=== PATIENT | female | born 1960 | race Caucasian/White ===

== ENCOUNTER → 2017-02-18 | Outpatient (CLI) | payer OTHER | LOC: FIMAGING 08:43 | PROVIDERS: ATTEND Physician Assistant | DX: Z12.31 Encounter for screening mammogram for malignant neoplasm of breast (principal); Z13.820 Encounter for screening for osteoporosis; M85.80 Other specified disorders of bone density and structure, unspecified site; Z78.0 Asymptomatic menopausal state | CPT/HCPCS: G0202 ==

== ENCOUNTER → 2017-05-25 | Outpatient (CLI) | payer OTHER | LOC: FIMAGING 08:54 | PROVIDERS: ATTEND Orthopaedic Surgery | DX: M17.12 Unilateral primary osteoarthritis, left knee (principal) ==

== ENCOUNTER 2017-06-02 09:09 | Inpatient (IN) | payer OTHER ==
[~2017-06-02 09:09] MED LIST: ROPIVACAINE 0.2% 80 MG, EPINEPHrine 0.2 MG, KETOROLAC TROMETHAMINE 30 MG in BAG 0 ML IU ONE; TRANEXAMIC ACID 3,000 MG in NS 50 ML IRR ONE; TRANEXAMIC ACID 3,000 MG/50 ML BAG IRR ONE; VANCOMYCIN 1 GM VIAL ONE
[2017-06-02] MEDS ORDERED: ACETAMINOPHEN 325 MG TAB PO ONE (09:24)
[2017-06-02] MEDS ORDERED: ceFAZolin 2 GM/DEXTROSE 100 ML IV ONE (09:24)
[2017-06-02] MEDS ORDERED: DEXAMETHASONE 4 MG/ML VIAL IVP ONE (09:24)
[2017-06-02] MEDS ORDERED: FAMOTIDINE 20 MG TAB PO ONE (09:24)
[2017-06-02] MEDS ORDERED: LIDOCAINE 1% 2 ML INJ ID PRN (09:35)
[2017-06-02] MEDS ORDERED: LR 1,000 ML IV ONE (09:35)
--- NOTE | 2017-06-02 09:38 | PDHPUP ---
History & Physical Update H&P update statement: This history and physical update is based on an assessment of the patient which was completed after admission or registration (within 24 hours), but prior to the surgery/procedure. H&P update: H&P reviewed & patient examined, no change in patient's condition since H&P completed
[2017-06-02] MEDS ORDERED: MIDAZOLAM 2 MG/2 ML VIAL ONE (11:33)
[2017-06-02] MEDS ORDERED: MIDAZOLAM 2 MG/2 ML VIAL IVP ONE (11:34)
--- NOTE | 2017-06-02 11:35 | PDANEPAE ---
ANE History of Present Illness tka ANE Past Medical History - Cardiovascular History Hx Hypertension: No Hx Arrhythmias: No Hx Chest Pain: No Hx Coronary Artery / Peripheral Vascular Disease: No Hx CHF / Valvular Disease: No Hx Palpitations: No - Pulmonary History Hx COPD: No Hx Asthma/Reactive Airway Disease: No Hx Recent Upper Respiratory Infection: No Hx Oxygen in Use at Home: No Hx Sleep Apnea: No Sleep Apnea Screening Result - Last Documented: Negative - Neurologic History Hx Cerebrovascular Accident: No Hx Seizures: No Hx Dementia: No - Endocrine History Hx Diabetes: No - Renal History Hx Renal Disorders: Yes Renal History Comment: stress incontinence - Liver History Hx Hepatic Disorders: No - Neurological & Psychiatric Hx Hx Neurological and Psychiatric Disorders: Yes Neurological / Psychiatric History Comment: mild spinal stenosis L5/S1 - Cancer History Hx Cancer: Yes 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 L ft swelling s/p surgery . - Chronic Pain History Chronic Pain: Yes (knees) - Surgical History Prior Surgeries: bunionectomy,spur excision -2016. C sections x2- 1988,1990. open knee sx-teenager. knee scopes x3 ANE Review of Systems - Exercise capacity METS (RN): 4 METS ANE Patient History - Allergies Allergies/Adverse Reactions: erythromycin base Allergy (Verified 05/03/17 10:04) Hives - Home Medications Home Medications: Herbals/Supplements -Info Only 1 ea PO DAILY 04/27/17 [Last Taken 05/19/17] Multivitamins [Multivitamin (*)] 1 each PO DAILY 04/27/17 [Last Taken 05/19/17] [place]-3 Fatty Acids [Fish Oil 1000 mg (*)] 1,000 mg PO DAILY 04/27/17 [Last Taken 05/19/17] - NPO status NPO Status: no food or drink >8 hours NPO Since - Liquids (Date): 06/01/17 NPO Since - Liquids (Time): 20:00 NPO Since - Solids (Date): 06/01/17 NPO Since - Solids (Time): 20:00 - Anes Hx Anes Hx: post operative nausea - Smoking Hx Smoking Status: Never smoked ANE Labs/Vital Signs - Vital Signs Blood Pressure: 124/66 Heart Rate: 63 Respiratory Rate: 16 O2 Sat (%): 98 Height: 175.26 cm Weight: 65.771 kg ANE Physical Exam - Airway Mallampati Score: Class 2 Mouth exam: normal dental/mouth exam - Pulmonary Pulmonary: no respiratory distress - Cardiovascular Cardiovascular: regular rate and rhythym - ASA Status ASA Status: I ANE Anesthesia Plan Anesthesia Plan: spinal Regional Anesthesia: adductor canal FNB
[2017-06-02] MEDS ORDERED: PROPOFOL/EMULSION 500 MG/50 ML BOTTLE IV ONE (11:38)
[2017-06-02] MEDS ORDERED: LIDOCAINE 2% 5 ML SDV ONE (11:46)
[2017-06-02] MEDS ORDERED: HYDROmorphONE/DILAUDID 2 MG/ML INJ ONE (12:05)
[2017-06-02] MEDS ORDERED: ROPIVACAINE HCL 150 MG/30 ML INJ ONE (12:07)
[2017-06-02] MEDS ORDERED: LR 500 ML IV PRN (12:09)
[2017-06-02] MEDS ORDERED: MEPERIDINE 25 MG/ML SYR IVP PRN (12:09)
[2017-06-02] MEDS ORDERED: fentaNYL 100 MCG/2 ML INJ IVP PRN (12:09)
[2017-06-02] MEDS ORDERED: ONDANSETRON 4 MG/2 ML VIAL IVP PRN ×2 (12:09→13:06)
[2017-06-02] MEDS ORDERED: NALOXONE HCL 0.4 MG/ML INJ IVP PRN (12:09)
[2017-06-02] MEDS ORDERED: ONDANSETRON 4 MG/2 ML VIAL ONE (12:11)
[2017-06-02] MEDS ORDERED: MAGNESIUM HYDROXIDE 30 ML UDCUP PO PRN (13:06)
[2017-06-02] MEDS ORDERED: PROMETHAZINE HCL 25 MG SUPPR PR PRN (13:06)
[2017-06-02] MEDS ORDERED: CYCLOBENZAPRINE 10 MG TAB PO PRN (13:06)
[2017-06-02] MEDS ORDERED: diphenhydrAMINE 25 MG CAP PO PRN (13:06)
[2017-06-02] MEDS ORDERED: LACTULOSE 20 GM/30 ML UDCUP PO PRN (13:06)
[2017-06-02] MEDS ORDERED: DIPHENOXYLATE/ATROPINE LOMOTIL 1 TAB PO PRN (13:06)
[2017-06-02] MEDS ORDERED: METOCLOPRAMIDE 10 MG/2 ML VIAL IVP PRN (13:06)
[2017-06-02] MEDS ORDERED: POLYETHYLENE GLYCOL 3350 17 GM PKT PO PRN (13:06)
[2017-06-02] MEDS ORDERED: BISACODYL 10 MG SUPP PR PRN (13:06)
[2017-06-02] MEDS ORDERED: TEMAZEPAM 15 MG CAP PO PRN (13:06)
[2017-06-02] MEDS ORDERED: PROMETHAZINE HCL 25 MG/ML INJ IVP PRN (13:06)
[2017-06-02] MEDS ORDERED: ONDANSETRON DISINTEGRATING 4 MG TAB PO PRN (13:06)
--- NOTE | 2017-06-02 13:06 | POSTOPPROG ---
Post Op Note Date of Operation: 06/02/17 Surgeon: Jesus Manuel Lagos General Labor: beth merida Anesthesiologist: jana Anesthesia: IV Sedation, Spinal Pre-op Diagnosis: L knee OA Post-op Diagnosis: L knee OA Indication: failed conservative therapies Procedure: L TKA, robot assisted Inf/Abcess present in the surg proc area at time of surgery?: No EBL: 50-100
[2017-06-02] MEDS: HYDROmorphONE/DILAUDID 1 MG/ML SYR IVP PRN ×3 (13:19→13:58)
[2017-06-02] MEDS ORDERED: HYDROmorphONE/DILAUDID 1 MG/ML SYR ONE (13:19)
--- NOTE | 2017-06-02 13:20 | POSTANESTH ---
Post Anesthetic Evaluation Cardiovascular Status: Normal, Stable Respiratory Status: Normal, Stable Level of Consciousness/Mental Status: Can Participate in Eval Pain Control: Adequate, Prn Tx Ordered Nausea/Vomiting Control: Adequate, Prn Tx Ordered Complications Possibly Related to Anesthesia: None Noted
[2017-06-02] MEDS ORDERED: LR 1,000 ML IV SCH (13:30)
[2017-06-02] MEDS: oxyCODONE IR 5 MG TAB PO PRN ×2 (14:32→17:37)
[2017-06-02] MEDS: ACETAMINOPHEN 325 MG TAB PO SCH ×2 (17:37→23:30)
[2017-06-02] MEDS: ASPIRIN 325 MG TAB PO SCH (19:44)
[2017-06-02] MEDS: SENNOSIDES/DOCUSATE SODIUM TAB PO SCH (19:44)
[2017-06-02] MEDS: ceFAZolin 2 GM/DEXTROSE 100 ML IV SCH (19:44)
[2017-06-02] MEDS: FAMOTIDINE 20 MG TAB PO SCH (19:45)
[2017-06-03] MEDS: oxyCODONE IR 5 MG TAB PO PRN ×3 (01:07→11:02)
[2017-06-03] MEDS: ACETAMINOPHEN 325 MG TAB PO SCH ×2 (04:56→14:32)
[2017-06-03] MEDS: ceFAZolin 2 GM/DEXTROSE 100 ML IV SCH (04:57)
[2017-06-03 05:03] VITALS: TEMP 97.7
[2017-06-03 05:19] LABS: HEMATOCRIT 37.5 % (38.0-47.0); HEMOGLOBIN 12.3 g/dL (12.6-16.3)
[2017-06-03 08:07] VITALS: BP 109/56; RESP 18
--- NOTE | 2017-06-03 08:23 | SOAPPROG ---
SOAP Progress Note Assessment/Plan: Assessment: Patient is doing well POD 1 s/p L TKA, robot assisted Pain management: pain is well controlled on oral pain meds. VTE ppx: recommend aspirin daily for 3 weeks, cont DARWIN and SCDs Anemia: level is expected initially postop. Asymptomatic. Continue to monitor D/c planning: d/c to home today pending release from PT Plan: 06/03/17 08:22 Objective: Vital Signs Temp Pulse Resp BP Pulse Ox 36.5 C 60 18 109/56 L 97 06/03/17 05:02 06/03/17 08:06 06/03/17 08:06 06/03/17 08:06 06/03/17 08:06 Laboratory Results 06/03/17 04:47 06/02/17 06/03/17 06/04/17 05:59 05:59 05:59 Intake Total 2427 Output Total 600 200 Balance 1827 -200 ICD10 Worksheet Patient Problems: Problems Problem Status Onset Osteoarthritis of knee, unilateral Acute - ICD10 Problem Qualifiers (1) Osteoarthritis of knee, unilateral
[2017-06-03] MEDS: SENNOSIDES/DOCUSATE SODIUM TAB PO SCH (08:38)
[2017-06-03] MEDS: FAMOTIDINE 20 MG TAB PO SCH (08:38)
[2017-06-03] MEDS: ASPIRIN 325 MG TAB PO SCH (08:38)
[2017-06-03 10:44] VITALS: PULSE 68; O2SAT 95
--- NOTE | 2017-06-03 13:34 | GOP ---
[f rep st] OPERATIVE REPORT DATE OF OPERATION: 06/02/2017 SURGEON: Jessica Lagos MD CAR BODY MECHANIC: Olman Cuba, TAMMY. ANESTHESIA: Spinal. PREOPERATIVE DIAGNOSIS: Left knee osteoarthritis. POSTOPERATIVE DIAGNOSIS: Left knee osteoarthritis. PROCEDURE PERFORMED: Left total knee arthroplasty with computer navigation. FINDINGS/PATHOLOGY: Severe patellofemoral osteoarthritis. ESTIMATED BLOOD LOSS: 30 cc. INDICATIONS: This is a 56-year-old female with severe and progressive pain and deformity of the left knee unresponsive to conservative care. The risks and benefits of surgical intervention were explained in detail. DESCRIPTION OF PROCEDURE: The patient was brought to the operative room and placed on the table in the supine position. Spinal anesthesia was induced without difficulty. A pneumatic tourniquet was applied about the left proximal thigh, and the leg was prepped and draped in a sterile fashion. The leg alegre was applied. After exsanguination by elevation the tourniquet was inflated to 275 mm of mercury. Incision was made anterior medial from the tibial tuberosity to a point 2 cm proximal to the superior pole of the patella. Medial parapatellar arthrotomy was carried out from the superior pole of the patella and posteriorly in line with the fibers of the Type II VMO. The medial collateral ligament was elevated and the infrapatellar fat pad was resected. The patella was everted and the articular surface was excised. A 35 mm patellar button was placed. Attention was turned first to the distal aspect of the left femur. At 3 cm proximal to the medial rise of the femur, 2 percutaneous half pins were placed for fixation of the femoral array. In a similar fashion, 2 pins were placed anteromedial on the tibia for fixation of the tibial array. External land marking and registration of the hip center was performed without difficulty. Internal femoral and tibial registration was carried out without difficulty and the femoral and tibial checkpoints were placed and verified for accuracy. Attention was turned to the femur. The foot print for the size 4 femoral component was cut with the saw using the [employer] robotic system and verified for accuracy against the CT based plan. In a similar fashion, saw was used to cut the footprint for the size 4 tibial component using the [employer] system and verified for accuracy against the CT based plan. The tibial articular surface was excised without difficulty, followed by the intercondylar box cut. The knee was extended and the remnants of the medial and lateral meniscus were excised. The posterior capsule was injected with ropivacaine, epinephrine and Toradol. A size 4 MIS mini-keel tibial tray was positioned. Trial reduction was then carried out. There was excellent range of motion, alignment, and stability using the 9 mm polyethylene. All trials were then removed. The joint was thoroughly irrigated and carefully dried. Two packages of cement and 2 grams of vancomycin were mixed in the vacuum mixer and placed on the fixation surfaces of all surfaces of the components. The components were implanted and all excess cement was thoroughly removed. The permanent 9 mm polyethylene was placed without difficulty. The tourniquet was deflated and all bleeders were coagulated. The wound was thoroughly irrigated and closed using interrupted sutures of 2-0 Vicryl for the joint capsule. The subcu was closed with 3-0 Vicryl and the skin with 4-0 Monocryl. Dermabond and Steri-Strips were applied followed by a compressive dressing. The patient was then moved from the operating room to the recovery room in good condition, having tolerated the procedure well. /[id number]/MODL MTDD
--- NOTE | 2017-06-07 03:42 | GDS ---
[f rep st] DISCHARGE SUMMARY ADMISSION DIAGNOSIS: Left knee osteoarthritis. DISCHARGE DIAGNOSIS: Left knee osteoarthritis. PROCEDURE: Left total knee arthroplasty, robot-assisted. VTE PROPHYLAXIS: Full-strength aspirin x21 days. BRIEF DESCRIPTION OF HOSPITAL STAY: Patient was admitted for an elective joint arthroplasty. The p atient tolerated the procedure well and has passed physical therapy. The patient was given appropri ate antibiotic prophylaxis and venous thromboembolism prophylaxis. The patient's pain was well cont rolled on oral pain medication, patient was holding down food, and had urinated. Decision was made to discharge the patient. The patient was given post-operative prescriptions pre-operatively. PLAN: Please follow up with Dr. Lagos as scheduled on June 21, 2017. /[id number]/MODL
== END 2017-06-03 12:54 | disposition home or self-care (01) | DRG 470 ==
LOC: F3E 09:09 → F3N 14:10
PROVIDERS: ADMIT Orthopaedic Surgery; ATTEND Orthopaedic Surgery
DX: M17.12 Unilateral primary osteoarthritis, left knee (principal); N39.3 Stress incontinence (female) (male); Z85.820 Personal history of malignant melanoma of skin
CPT/HCPCS: 97116-GP; 97161-GP; 97165-GO; 97530-GP; C1713; J0171; J0690; J1100; J1170; J1885; J2250; J2405; J2550; J2704; J2795; J3370

== ENCOUNTER → 2017-06-30 | Outpatient (CLI) | payer OTHER | LOC: FIMAGING 08:41 | PROVIDERS: ATTEND Orthopaedic Surgery | DX: Z01.818 Encounter for other preprocedural examination (principal); M17.11 Unilateral primary osteoarthritis, right knee ==

== ENCOUNTER 2017-07-14 07:14 | Inpatient (IN) | payer OTHER ==
[2017-06-30 09:17] LABS: ADD DIFF? NO; ADD MORPH? NO; ADD SCAN? NO; ATYPICAL LYMPHOCYTE FLAG 0 (0-99); FRAGMENT RBC FLAG 0 (0-99); HEMATOCRIT 41.2 % (38.0-47.0); HEMOGLOBIN 13.6 g/dL (12.6-16.3); LEFT SHIFT FLG 0 (0-99); LIPEMIA HEMOLYSIS FLAG 80 (0-99); MEAN CELL VOLUME 93.8 fL (81.5-99.8); MEAN PLATELET VOLUME 9.7 fL (8.7-11.7); PLATELET CLUMPS FLAG 0 (0-99); PLATELET COUNT 284 10^3/uL (150-400); RED BLOOD CELL COUNT 4.39 10^6/uL (4.18-5.33); RED CELL DISTRIBUTION WIDTH 12.9 % (11.5-15.2)
[2017-07-14] MEDS ORDERED: DEXAMETHASONE 4 MG/ML VIAL IVP ONE (07:27)
[2017-07-14] MEDS ORDERED: FAMOTIDINE 20 MG TAB PO ONE (07:27)
[2017-07-14] MEDS ORDERED: ceFAZolin 2 GM/DEXTROSE 100 ML IV ONE (07:27)
[2017-07-14] MEDS ORDERED: ACETAMINOPHEN 325 MG TAB PO ONE (07:27)
[2017-07-14] MEDS ORDERED: LIDOCAINE 1% 2 ML INJ ID PRN (07:29)
[2017-07-14] MEDS ORDERED: LR 1,000 ML IV ONE (07:29)
--- NOTE | 2017-07-14 07:40 | PDANEPAE ---
ANE History of Present Illness 56 year old female presents for right total knee replacement. Patient with recent orthopaedic surgery with spinal, but had to transition to general anesthesia due to patient movement. On emergence, spinal had set up completely , reporting still unable to move legs. Patient did request that we attempt spinal with sedation again today. Consented for general anesthesia as back-up plan only. Will perform right AC block for POPC PSR in PACU. ANE Past Medical History - Cardiovascular History Hx Hypertension: No Hx Arrhythmias: No Hx Chest Pain: No Hx Coronary Artery / Peripheral Vascular Disease: No Hx CHF / Valvular Disease: No Hx Palpitations: No - Pulmonary History Hx COPD: No Hx Asthma/Reactive Airway Disease: No Hx Recent Upper Respiratory Infection: No Hx Oxygen in Use at Home: No Hx Sleep Apnea: No Sleep Apnea Screening Result - Last Documented: Negative - Neurologic History Hx Cerebrovascular Accident: No Hx Seizures: No Hx Dementia: No - Endocrine History Hx Diabetes: No Hypothyroid: No Hyperthyroid: No Obesity: no - Renal History Hx Renal Disorders: Yes Renal History Comment: stress incontinence - Liver History Hx Hepatic Disorders: No - Neurological & Psychiatric Hx Hx Neurological and Psychiatric Disorders: Yes Neurological / Psychiatric History Comment: mild spinal stenosis L5/S1 - Cancer History Hx Cancer: Yes 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 L ft swelling s/p surgery . - Chronic Pain History Chronic Pain: Yes (knees) - Surgical History Prior Surgeries: bunionectomy,spur excision -2016. C sections x2- 1987,1990. open knee sx-teenager. knee scopes x3 ANE Review of Systems Review of systems is: negative Review of Systems: - Exercise capacity Exercise capacity: >=4 METS METS (RN): 4 METS ANE Patient History - Allergies Allergies/Adverse Reactions: erythromycin base Allergy (Verified 06/15/17 12:09) Hives - Home Medications Home medications: home medication list seen and reviewed Home Medications: RX: Herbals/Supplements -Info Only 1 ea PO DAILY 04/27/17 [Last Taken 6 Weeks Ago ~06/02/17] RX: Multivitamins [Multivitamin (*)] 1 each PO DAILY 04/27/17 [Last Taken 6 Weeks Ago ~06/02/17] RX: [place]-3 Fatty Acids [Fish Oil 1000 mg (*)] 1,000 mg PO DAILY 04/27/17 [Last Taken 05/19/17] RX: oxyCODONE IR [Oxycodone Ir (*)] 5 - 10 mg PO PRN PRN 06/08/17 [Last Taken 5 Weeks Ago ~06/09/17] - NPO status NPO Status: no food or drink >8 hours - Anes Hx Anes Hx: slow to awaken from anesthesia - Smoking Hx Smoking Status: Never smoked Marijuana use: No - Alcohol Use Alcohol Use: Occasionally - Family Anes Hx Family Anes Hx: neg - N/A Family Hx Anesthesia Complications: NONE ANE Labs/Vital Signs - Labs Result Diagrams: 06/30/17 08:50 - Vital Signs Vital Signs: reviewed preoperatively; see RN documention for details Height: 175.26 cm Weight: 65.771 kg ANE Physical Exam - Airway Neck exam: FROM Mallampati Score: Class 2 Mouth exam: normal dental/mouth exam - Pulmonary Pulmonary: no respiratory distress - Cardiovascular Cardiovascular: regular rate and rhythym - ASA Status ASA Status: II ANE Anesthesia Plan Anesthesia Plan: GA w LMA, MAC, spinal (Had previous difficult with spinal placement requiring general anesthesia.) Regional Anesthesia: single shot NB Total IV Anesthesia: No
[2017-07-14] MEDS ORDERED: MIDAZOLAM 2 MG/2 ML VIAL IVP ONE (07:58)
[2017-07-14] MEDS ORDERED: BUPIVACAINE/DEXTROSE 7.5MG/ML 2 ML SPINAL AMP SP ONE (08:27)
[2017-07-14] MEDS ORDERED: PROPOFOL/EMULSION 500 MG/50 ML BOTTLE IV ONE (08:27)
[2017-07-14] MEDS ORDERED: ONDANSETRON 4 MG/2 ML VIAL IVP PRN ×2 (08:49→09:36)
[2017-07-14] MEDS ORDERED: PROMETHAZINE HCL 25 MG SUPPR PR PRN (08:49)
[2017-07-14] MEDS ORDERED: METOCLOPRAMIDE 10 MG/2 ML VIAL IVP PRN (08:49)
[2017-07-14] MEDS ORDERED: DIPHENOXYLATE/ATROPINE LOMOTIL 1 TAB PO PRN (08:49)
[2017-07-14] MEDS ORDERED: MAGNESIUM HYDROXIDE 30 ML UDCUP PO PRN (08:49)
[2017-07-14] MEDS ORDERED: ONDANSETRON DISINTEGRATING 4 MG TAB PO PRN (08:49)
[2017-07-14] MEDS ORDERED: CYCLOBENZAPRINE 10 MG TAB PO PRN (08:49)
[2017-07-14] MEDS ORDERED: POLYETHYLENE GLYCOL 3350 17 GM PKT PO PRN (08:49)
[2017-07-14] MEDS ORDERED: TEMAZEPAM 15 MG CAP PO PRN (08:49)
[2017-07-14] MEDS ORDERED: LACTULOSE 20 GM/30 ML UDCUP PO PRN (08:49)
[2017-07-14] MEDS ORDERED: PROMETHAZINE HCL 25 MG/ML INJ IVP PRN (08:49)
[2017-07-14] MEDS ORDERED: diphenhydrAMINE 25 MG CAP PO PRN (08:49)
[2017-07-14] MEDS ORDERED: BISACODYL 10 MG SUPP PR PRN (08:49)
[2017-07-14] MEDS ORDERED: LR 1,000 ML IV SCH (09:00)
[2017-07-14] MEDS ORDERED: ONDANSETRON 4 MG/2 ML VIAL ONE (09:33)
[2017-07-14] MEDS ORDERED: ROPIVACAINE HCL 150 MG/30 ML INJ ONE (09:33)
[2017-07-14] MEDS ORDERED: DEXAMETHASONE 4 MG/ML VIAL ONE (09:33)
[2017-07-14] MEDS ORDERED: LR 500 ML IV PRN (09:36)
[2017-07-14] MEDS ORDERED: HYDROmorphONE/DILAUDID 1 MG/ML INJ IVP PRN (09:36)
[2017-07-14] MEDS ORDERED: HYDROCODONE/APAP 5/325 TAB PO PRN (09:36)
[2017-07-14] MEDS ORDERED: fentaNYL 100 MCG/2 ML INJ IVP PRN (09:36)
[2017-07-14] MEDS ORDERED: NALOXONE HCL 0.4 MG/ML INJ IVP PRN (09:36)
--- NOTE | 2017-07-14 10:02 | POSTOPPROG ---
Post Op Note Date of Operation: 07/14/17 Surgeon: Jesus Manuel Rincon Clinical Quality Assurance Associate: francesca rincon Anesthesiologist: dr. Bernal Anesthesia: Spinal, Other (Specify) (adductor canal block) Pre-op Diagnosis: right knee OA Post-op Diagnosis: same Indication: right knee pain due to OA that failed conservative measures Procedure: R TKA robot assisted Findings: severe knee OA Inf/Abcess present in the surg proc area at time of surgery?: No EBL: 50-100
[2017-07-14] MEDS: ACETAMINOPHEN 325 MG TAB PO SCH ×3 (13:56→22:50)
[2017-07-14] MEDS: ceFAZolin 2 GM/DEXTROSE 100 ML IV SCH ×2 (13:56→22:50)
[2017-07-14] MEDS: SENNOSIDES/DOCUSATE SODIUM TAB PO SCH ×2 (14:14→19:58)
--- NOTE | 2017-07-14 15:28 | POSTANESTH ---
Post Anesthetic Evaluation Cardiovascular Status: Normal, Stable, Similar to Pre-Op Cond Respiratory Status: Normal, Stable, Similar to Pre-op Cond. Level of Consciousness/Mental Status: Can Participate in Eval, Alert and Oriented Pain Control: Adequate, Prn Tx Ordered Nausea/Vomiting Control: Adequate, Prn Tx Ordered Complications Possibly Related to Anesthesia: None Noted
[2017-07-14] MEDS: FAMOTIDINE 20 MG TAB PO SCH (19:59)
[2017-07-14] MEDS: ASPIRIN 325 MG TAB PO SCH (19:59)
[2017-07-14] MEDS: oxyCODONE IR 5 MG TAB PO PRN (22:50)
[2017-07-15] MEDS: ACETAMINOPHEN 325 MG TAB PO SCH (05:00)
[2017-07-15 05:15] LABS: HEMATOCRIT 34.5 % (38.0-47.0); HEMOGLOBIN 11.5 g/dL (12.6-16.3)
[2017-07-15] MEDS: oxyCODONE IR 5 MG TAB PO PRN ×2 (06:22→10:15)
[2017-07-15 08:17] VITALS: BP 94/62; PULSE 61; RESP 14; TEMP 97.6; O2SAT 94
[2017-07-15] MEDS: ASPIRIN 325 MG TAB PO SCH (08:49)
[2017-07-15] MEDS: SENNOSIDES/DOCUSATE SODIUM TAB PO SCH (08:49)
[2017-07-15] MEDS: FAMOTIDINE 20 MG TAB PO SCH (08:49)
--- NOTE | 2017-07-15 08:49 | GOP ---
[f rep st] OPERATIVE REPORT DATE OF OPERATION: 07/14/2017 SURGEON: Jessica Lagos MD SUPERVISOR PREPRESS: TAMMY Johnson. PREOPERATIVE DIAGNOSIS: Right knee osteoarthritis. POSTOPERATIVE DIAGNOSIS: Right knee osteoarthritis. PROCEDURE PERFORMED: Right total knee arthroplasty with computer navigation and robotic assist. FINDINGS: ESTIMATED BLOOD LOSS: 30 cc. INDICATIONS: This is a 56-year-old female with severe and progressive pain and deformity of the right knee unresponsive to conservative care. The risks and benefits of surgical intervention were explained in detail. DESCRIPTION OF PROCEDURE: The patient was brought to the operative room and placed on the table in the supine position. Spinal anesthesia was induced without difficulty. A pneumatic tourniquet was applied about the right proximal thigh, and the leg was prepped and draped in a sterile fashion. The leg alegre was applied. After exsanguination by elevation the tourniquet was inflated to 275 mm of mercury. Incision was made anterior medial from the tibial tuberosity to a point 2 cm proximal to the superior pole of the patella. Medial parapatellar arthrotomy was carried out from the superior pole of the patella and posteriorly in line with the fibers of the Type II VMO. The medial collateral ligament was elevated and the infrapatellar fat pad was resected. The patella was everted and the articular surface was excised. A 3 mm patellar button was placed. Attention was turned first to the distal aspect of the right femur. At 3 cm proximal to the medial rise of the femur, 2 percutaneous half pins were placed for fixation of the femoral array. In a similar fashion, 2 pins were placed anteromedial on the tibia for fixation of the tibial array. External land marking and registration of the hip center was performed without difficulty. Internal femoral and tibial registration was carried out without difficulty and the femoral and tibial checkpoints were placed and verified for accuracy. Attention was turned to the femur. The foot print for the size 4 femoral component was cut with the saw using the [employer] robotic system and verified for accuracy against the CT based plan. In a similar fashion, saw was used to cut the footprint for the size 4 tibial component using the [employer]ANNON system and verified for accuracy against the CT based plan. The tibial articular surface was excised without difficulty, followed by the intercondylar box cut. The knee was extended and the remnants of the medial and lateral meniscus were excised. The posterior capsule was injected with ropivacaine, epinephrine and Toradol. A size 4 MIS mini-keel tibial tray was positioned. Trial reduction was then carried out. There was excellent range of motion, alignment, and stability using the 9 mm polyethylene. All trials were then removed. The joint was thoroughly irrigated and carefully dried. Two packages of cement and 2 grams of vancomycin were mixed in the vacuum mixer and placed on the fixation surfaces of all surfaces of the components. The components were implanted and all excess cement was thoroughly removed. The permanent 9 mm polyethylene was placed without difficulty. The tourniquet was deflated and all bleeders were coagulated. The wound was thoroughly irrigated and closed using interrupted sutures of 2-0 Vicryl for the joint capsule. The subcu was closed with 3-0 Vicryl and the skin with 4-0 Monocryl. Dermabond and Steri-Strips were applied followed by a compressive dressing. The patient was then moved from the operating room to the recovery room in good condition, having tolerated the procedure well. /[id number]/MODL MTDD
[2017-07-15] MEDS ORDERED: FLU VACC QS 2017-18 (3YR+)/PF 0.5 ML SYR (FLUARIX QUAD) IM ONE (08:56)
--- NOTE | 2017-07-15 09:55 | SOAPPROG ---
SOAP Progress Note Assessment/Plan: Assessment: Ana Paula is POD 1 s/p R TKA 1) pain management: pain is well controlled on oral pain meds. 2) anemia: level expected initially postop. asymptomatic. continue to monitor for symptoms 3) VTE ppx recommend aspirin 325mg daily x 3 weeks 4) D/c planning: recommend D/c to home today pending release from PT 5) postop urinary retention: straight cath'd yesterday, resolved today. Plan: 07/15/17 09:54 Subjective: Ana Paula is doing well today, denies SOB, chest pain and N/V. Objective: Vital Signs Temp Pulse Resp BP Pulse Ox 36.4 C 61 14 94/62 L 94 07/15/17 08:00 07/15/17 08:00 07/15/17 08:00 07/15/17 08:00 07/15/17 08:00 Laboratory Results 07/15/17 04:39 07/14/17 07/15/17 07/16/17 05:59 05:59 05:59 Intake Total 2225 240 Output Total 810 Balance 1415 240 RLE: incision dressing is clean and dry, NVI, +pf/df ICD10 Worksheet Patient Problems: Problems Problem Status Onset Primary localized osteoarthritis of right knee Acute Osteoarthritis of knee, unilateral Acute
--- NOTE | 2017-07-15 11:27 | ASDISCHSUM ---
Discharge Information Plan Status:Home with No Needs Medically Cleared to Leave: Discharge Date:07/15/2017 10:20 AM CM D/C Disposition: ADT D/C Disposition:Home, Routine, Self-Care Projected Discharge Date:07/15/2017 10:20 AM Transportation at D/C: Discharge Delay Reason: Follow-Up Date:07/15/2017 10:20 AM Discharge Slot: Final Diagnosis: Placement Information Patient Contact Information Contact Name:JONAH Relationship: [address] City:[place] Alternate Phone: [facility]/Zip Code:[place] [address] Email: Financial Information Financial Class:HMO and PPO Plans Primary Plan Desc:EILEEN RANDI PPO Primary Plan Number:[id number] Secondary Plan Desc: Secondary Plan Number: Assessment Information Intervention Information
--- NOTE | 2017-07-17 13:15 | GDS ---
[f rep st] DISCHARGE SUMMARY ADMISSION DIAGNOSIS: Right knee osteoarthritis. DISCHARGE DIAGNOSIS: Right knee osteoarthritis. PROCEDURE: Right total knee arthroplasty, robot assisted. VTE PROPHYLAXIS: Aspirin recommended daily. BRIEF DESCRIPTION OF HOSPITAL STAY: Patient was admitted for an elective joint arthroplasty. The patient tolerated the procedure well and has passed physical therapy. The patient was given appropriate antibiotic prophylaxis and venous thromboembolism prophylaxis. The patient's pain was well controlled on oral pain medication, patient was holding down food, and had urinated. Decision was made to discharge the patient. The patient was given post-operative prescriptions pre-operatively. PLAN: Please follow up as scheduled in Dr. Lagos's office in 3 weeks. /[id number]/MODL MTDD
== END 2017-07-15 10:20 | disposition home or self-care (01) | DRG 470 ==
LOC: F3N 07:14
PROVIDERS: ADMIT Orthopaedic Surgery; ATTEND Orthopaedic Surgery
PROC: 0SRC0J9 Replacement of Right Knee Joint with Synthetic Substitute, Cemented, Open Approach (ICD-10-PCS; principal; 2017-07-14 09:15)
DX: M17.11 Unilateral primary osteoarthritis, right knee (principal); Z85.820 Personal history of malignant melanoma of skin; Z23 Encounter for immunization
CPT/HCPCS: 97110-GP; 97116-GP; 97161-GP; 97165-GO; C1713; G0008; J0171; J0690; J1100; J1885; J2250; J2405; J2704; J2795; J3370

== ENCOUNTER → 2018-04-18 | Outpatient (CLI) | payer OTHER | LOC: FIMAGING 08:57 | PROVIDERS: ATTEND Physician Assistant | DX: Z12.31 Encounter for screening mammogram for malignant neoplasm of breast (principal) ==

== ENCOUNTER 2018-12-31 20:11 | Emergency (ER) | payer OTHER ==
[2018-12-31 20:16] VITALS: BP 133/70
--- NOTE | 2018-12-31 20:31 | EDPHY ---
H & P Time Seen by Provider: 12/31/18 20:16 HPI/ROS: CHIEF COMPLAINT: Skin rash HISTORY OF PRESENT ILLNESS: Patient developed skin rash this morning starting on her ankles and legs. The notice spread to both legs and both arms near the elbows. It is red and spotty on lower legs and arms, and confluent on the thighs and feels "hot" but is not itchy or painful. Not associated with any recent illness. No fevers or chills. No trouble breathing. No signs or symptoms of bleeding. Moderate in nature at this time. REVIEW OF SYSTEMS: Eye: no change in vision ENT: no sore throat Cardiac: no chest pain Pulmonary: no cough or SOB Abdomen: no vomiting, diarrhea, abdominal pain Musculoskeletal: no back pain or leg pain Skin: HPI Neuro: no headache Constitutional: no fever, says the last illness she had was flu-like in October : no urinary symptoms A comprehensive 10 point review of systems is otherwise negative aside from elements mentioned in the history of present illness. PAST MEDICAL HISTORY: Includes multiple orthopedic surgeries including knee finger and foot, Social history: Nonsmoker General Appearance: Alert and conversant, cooperative. Eyes: No scleral icterus. ENT, Mouth: Normal mucous membranes. No angioedema. No intraoral lesions or blisters. Respiratory: Normal respiratory effort, breath sounds equal, lungs are clear to auscultation. No wheezing. Cardiovascular: Regular rate and rhythm. Gastrointestinal: Abdomen is soft and non tender. Neurological: Alert, face symmetric, normal motor and sensory in extremities. Ambulatory, fluent speech. Skin: Patient has a non blanching rash most prominent in both thighs but extends in the legs and also in both ankles. It is not raised and is red and also extends to the ulnar surface of both arms center on the elbows. Does not have joint effusion. Not tender to palpation. Does not joellen. Papular on knees and below, confluent on both thighs. Not on trunk or face. No blisters, no crepitus. Musculoskeletal: No joint swelling, no neck stiffness. Psychiatric: Not agitated. Emergency Department course/MDM: Vital signs reviewed include afebrile, not hypotensive. Labs to include CBC chemistry PT PTT sed rate and CRP. I think this is likely not urticaria or cellulitis or a burn, not likely purpura fulminans or sepsis or meningitis. Differential also includes but not limited to vasculitis, thrombocytopenia, ITP, autoimmune process. 2057: Case discussed in detail with Dr. Daly TAYLOR rheumatology, including photos of patient's rash shared with him via cell text with patient's explicit permission. His impression is vasculitis; add ANCA serology, urine CXR; he will followup with patient's ANCA testing and with her in the office after next week. He recommends 40mg prednisone for 5 days, 20mg for 5 days, then 10mg daily, then office followup. Recommendations discussed with the patient she states understanding and agreement. Says she really "feels fine" except for having the rash. Smoking Status: Never smoked Constitutional: Initial Vital Signs Temperature (C) 36.7 C 12/31/18 20:13 Heart Rate 75 12/31/18 20:13 Respiratory Rate 16 12/31/18 20:13 Blood Pressure 133/70 H 12/31/18 20:13 O2 Sat (%) 98 12/31/18 20:13 O2 Delivery Mode Room Air Allergies/Adverse Reactions: erythromycin base Allergy (Verified 12/31/18 20:16) Hives Home Medications: Medication Instructions Recorded predniSONE 10 mg PO AD #40 tab 12/31/18 valACYclovir 12/31/18 Medical Decision Making - Diagnostics Imaging Results: Imaging Impressions Chest X-Ray 12/31/18 20:59 Impression: Normal chest x-ray. Imaging: I viewed and interpreted images myself - Data Points Laboratory Results: Laboratory Results 12/31/18 20:33 12/31/18 20:33 12/31/18 12/31/18 12/31/18 21:05 20:33 20:33 WBC RBC Hgb Hct MCV MCH MCHC RDW Plt Count MPV Neut % (Auto) Lymph % (Auto) [place] % (Auto) Eos % (Auto) Baso % (Auto) Nucleat RBC Rel Count Absolute Neuts (auto) Absolute Lymphs (auto) Absolute Monos (auto) Absolute Eos (auto) Absolute Basos (auto) Absolute Nucleated RBC Immature Gran % Immature Gran # ESR PT INR APTT Sodium 136 mEq/L mEq/L (135-145) Potassium 4.0 mEq/L mEq/L (3.5-5.2) Chloride 103 mEq/L mEq/L (97-110) Carbon Dioxide 24 mEq/l mEq/l (22-31) Anion Gap 9 mEq/L mEq/L (6-14) BUN 21 mg/dL mg/dL (7-23) Creatinine 0.9 mg/dL mg/dL (0.6-1.0) Estimated GFR > 60 Glucose 121 mg/dL H mg/dL (70-100) Calcium 9.4 mg/dL mg/dL (8.5-10.4) Total Bilirubin 0.4 mg/dL mg/dL (0.1-1.4) Conjugated Bilirubin 0.3 mg/dL mg/dL (0.0-0.5) Unconjugated Bilirubin 0.1 mg/dL mg/dL (0.0-1.1) AST 39 IU/L IU/L (14-46) ALT 47 IU/L IU/L (9-52) Alkaline Phosphatase 71 IU/L IU/L (38-126) C-Reactive Protein < 5.0 mg/L mg/L (<10.0) Total Protein 7.4 g/dL g/dL (6.3-8.2) Albumin 4.4 g/dL g/dL (3.5-5.0) Urine Color PALE YELLOW Urine Appearance CLEAR Urine pH 5.0 (5.0-7.5) Ur Specific [place] 1.011 (1.002-1.030) Urine Protein NEGATIVE (NEGATIVE) Urine Ketones NEGATIVE (NEGATIVE) Urine Blood NEGATIVE (NEGATIVE) Urine Nitrate NEGATIVE (NEGATIVE) Urine Bilirubin NEGATIVE (NEGATIVE) Urine Urobilinogen NEGATIVE EU EU (0.2-1.0) Ur Leukocyte Esterase NEGATIVE (NEGATIVE) Urine Glucose NEGATIVE (NEGATIVE) Proteinase 3 (PR3) Pending Myeloperoxidase Ab Pending 12/31/18 12/31/18 20:33 20:33 WBC 7.95 10^3/uL 10^3/uL (3.80-9.50) RBC 4.67 10^6/uL 10^6/uL (4.18-5.33) Hgb 14.5 g/dL g/dL (12.6-16.3) Hct 42.8 % % (38.0-47.0) MCV 91.6 fL fL (81.5-99.8) MCH 31.0 pg pg (27.9-34.1) MCHC 33.9 g/dL g/dL (32.4-36.7) RDW 13.2 % % (11.5-15.2) Plt Count 273 10^3/uL 10^3/uL (150-400) MPV 9.7 fL fL (8.7-11.7) Neut % (Auto) 74.6 % H % (39.3-74.2) Lymph % (Auto) 18.5 % % (15.0-45.0) [place] % (Auto) 3.9 % L % (4.5-13.0) Eos % (Auto) 2.6 % % (0.6-7.6) Baso % (Auto) 0.1 % L % (0.3-1.7) Nucleat RBC Rel Count 0.0 % % (0.0-0.2) Absolute Neuts (auto) 5.93 10^3/uL 10^3/uL (1.70-6.50) Absolute Lymphs (auto) 1.47 10^3/uL 10^3/uL (1.00-3.00) Absolute Monos (auto) 0.31 10^3/uL 10^3/uL (0.30-0.80) Absolute Eos (auto) 0.21 10^3/uL 10^3/uL (0.03-0.40) Absolute Basos (auto) 0.01 10^3/uL L 10^3/uL (0.02-0.10) Absolute Nucleated RBC 0.00 10^3/uL 10^3/uL (0-0.01) Immature Gran % 0.3 % % (0.0-1.1) Immature Gran # 0.02 10^3/uL 10^3/uL (0.00-0.10) ESR 10 MM/HR MM/HR (0-30) PT 13.0 SEC SEC (12.0-15.0) INR 1.02 (0.83-1.16) APTT 25.8 SEC SEC (23.0-38.0) Sodium Potassium Chloride Carbon Dioxide Anion Gap BUN Creatinine Estimated GFR Glucose Calcium Total Bilirubin Conjugated Bilirubin Unconjugated Bilirubin AST ALT Alkaline Phosphatase C-Reactive Protein Total Protein Albumin Urine Color Urine Appearance Urine pH Ur Specific [place] Urine Protein Urine Ketones Urine Blood Urine Nitrate Urine Bilirubin Urine Urobilinogen Ur Leukocyte Esterase Urine Glucose Proteinase 3 (PR3) Myeloperoxidase Ab Medications Given: Discontinued Medications Prednisone (Prednisone) 40 mg PO EDNOW ONE Stop: 12/31/18 21:22 Last Admin: 12/31/18 21:28 Dose: 40 mg Departure - Departure Disposition: Home, Routine, Self-Care Clinical Impression: Rash Condition: Good Instructions: Acute Rash (ED) Additional Instructions: Dr. Kauffman is the chart picker who reviewed your case from the emergency department. He recommends treating what is likely vasculitis with prednisone as prescribed. Please call his office to follow up within the next 2 weeks. He will be out of town for part of next week, please follow-up with your primary care provider or return to the emergency department if you worse in any way or develop new symptoms. Referrals: Tricia Ramos PA [Primary Care Provider] - As per Instructions Donte Kauffman MD [[facility] [place] Primary Care Provider] - As per Instructions Prescriptions: predniSONE 10 mg PO AD #40 tab
[2018-12-31 20:53] LABS: PLATELET COUNT 273 10^3/uL (150-400)
[2018-12-31 21:01] LABS: INR 1.02 (0.83-1.16)
[2018-12-31] MEDS ORDERED: predniSONE 20 MG TAB PO ONE (21:21)
== END 2018-12-31 21:29 | disposition home or self-care (01) ==
DX: R21 Rash and other nonspecific skin eruption (principal)
CPT/HCPCS: J7512